=== PATIENT | female | born 1985 | race Caucasian/White ===

== ENCOUNTER 2017-02-01 19:26 | Emergency (ER) | payer OTHER ==
[2017-02-01 18:35] LABS: INFLUENZA A NEG (NEG); INFLUENZA B NEG (NEG)
[~2017-02-01 19:26] MED LIST: AMOXICILLIN PO; BCP; BIRTH CONTROL PILL; FAMOTIDINE PO; FLINTSTONES M200 MCG PO; MULTI VITAMIN1 EACH PO; NO MEDICATIONS; PHENERGAN25 MG PO; ZOFRAN ODT4 MG PO; ZOFRAN PO
== END 2017-02-01 20:59 | disposition home or self-care (01) ==
LOC: CFTX 19:26
PROVIDERS: Emergency Medicine
DX: J02.0 Streptococcal pharyngitis (principal); F17.210 Nicotine dependence, cigarettes, uncomplicated
CPT/HCPCS: 87804; 87880; 96372; 99283; J0561